=== PATIENT | female | born 1990 | race Caucasian/White ===

== ENCOUNTER → 2025-06-13 07:27 | Outpatient (CLI) | payer OTHER, SELFPAY ==
[2025-06-13 08:19] LABS: HCG Quantitative /Beta subunit 10.70 mIU/mL
[2025-06-13 08:42] LABS: Progesterone, Total 17.50 ng/mL
== END ==
PROVIDERS: Referring Provider Obstetrics & Gynecology Reproductive Endocrinology; Visit Provider Obstetrics & Gynecology Reproductive Endocrinology
DX: Z32.00 Encounter for pregnancy test, result unknown (principal)
CPT/HCPCS: 36415; 84144; 84702

== ENCOUNTER → 2025-06-16 07:28 | Outpatient (CLI) | payer OTHER, SELFPAY ==
[2025-06-16 08:10] LABS: HCG Quantitative /Beta subunit 18.00 mIU/mL
[2025-06-16 08:12] LABS: Progesterone, Total 14.80 ng/mL
[2025-06-16 08:24] LABS: Thyroid Stimulating Hormone 1.99 uIU/mL (0.47-4.68)
[2025-06-16 08:28] LABS: Estradiol, Total 203.3 pg/mL
== END ==
PROVIDERS: Referring Provider Obstetrics & Gynecology Reproductive Endocrinology; Visit Provider Obstetrics & Gynecology Reproductive Endocrinology
DX: Z32.01 Encounter for pregnancy test, result positive (principal)
CPT/HCPCS: 36415; 82670; 84144; 84443; 84702

== ENCOUNTER → 2025-06-18 07:29 | Outpatient (CLI) | payer OTHER, SELFPAY ==
[2025-06-18 08:23] LABS: HCG Quantitative /Beta subunit 17.00 mIU/mL; Progesterone, Total 10.60 ng/mL
[2025-06-18 08:39] LABS: Estradiol, Total 81.1 pg/mL
== END ==
PROVIDERS: Referring Provider Obstetrics & Gynecology Reproductive Endocrinology; Visit Provider Obstetrics & Gynecology Reproductive Endocrinology
DX: Z32.01 Encounter for pregnancy test, result positive (principal)
CPT/HCPCS: 36415; 82670; 84144; 84702

== ENCOUNTER → 2025-06-27 08:06 | Outpatient (CLI) | payer OTHER, SELFPAY ==
[2025-06-27 09:00] LABS: HCG Quantitative /Beta subunit < 2.39 mIU/mL
== END ==
PROVIDERS: Referring Provider Obstetrics & Gynecology Reproductive Endocrinology; Visit Provider Obstetrics & Gynecology Reproductive Endocrinology
DX: O02.1 Missed abortion (principal)
CPT/HCPCS: 36415; 84702